=== PATIENT | female | born 1950 | race Caucasian/White ===

== ENCOUNTER 2019-03-02 09:04 | Emergency (ER) | payer MEDICARE ==
[~2019-03-02] VITALS: Ht 167.6 cm; Wt 56.0 kg
--- NOTE | 2019-03-02 09:45 | NUR ---
Pt to 31 from lobby
--- NOTE | 2019-03-02 09:54 | NUR ---
PT TO ED FOR CHRONIC LLQ ABD PAIN SINCE AUGUST. PT STATES SHE WAS CALLED ON SATURDAY AND TOLD THAT SHE NEEDED A BLOOD TRANSFUSION AND TO GO TO THE ED. CONNECTED TO MONITORS. VSS. EDMD TO BEDSIDE FOR ASSESSMENT. AWAITING ORDERS.
[2019-03-02 10:32] LABS: CULTURE INDICATED? NO; MICROSCOPIC NOT IND
[2019-03-02 10:44] LABS: ALANINE AMINOTRANSFERASE 13 U/L (12-78); ALBUMIN 3.4 g/dL (3.4-5.0); ANION GAP 5 mmol/L (5-15); CALCIUM 9.6 mg/dL (8.5-10.1); CHLORIDE 107 mmol/L (98-107); CREATININE 0.91 mg/dL (0.55-1.02)
[2019-03-02 10:46] LABS: ALKALINE PHOSPHATASE 105 U/L (45-117); BILIRUBIN,TOTAL 0.2 mg/dL (0.2-1.0); TOTAL PROTEIN 7.8 g/dL (6.4-8.2)
[2019-03-02 10:47] LABS: MEAN CORPUSCULAR HEMOGLOBIN 21.1 pg (27.0-34.8); MEAN CORPUSCULAR HGB CONC 30.9 g/dL (32.4-35.8); MEAN CORPUSCULAR VOLUME 68.4 fL (80-100); MEAN PLATELET VOLUME 7.8 fL (7.4-10.4); PLATELET COUNT 647 x10^3/uL (130-400); RED BLOOD COUNT 4.21 x10^6/uL (3.82-5.3); RED CELL DISTRIBUTION WIDTH 18.6 % (9.6-15.2)
--- NOTE | 2019-03-02 10:55 | NUR ---
pt to ct at this time.
--- NOTE | 2019-03-02 11:09 | NUR ---
pt back from ct
[2019-03-02 11:15] LABS: BASOPHILS # (AUTO) 0.01 x10^3/uL (0-0.1); BASOPHILS % (AUTO) 0 % (0-1); EOSINOPHILS # (AUTO) 0.16 x10^3/uL (0-0.4); EOSINOPHILS % (AUTO) 2 % (1-7); LYMPHOCYTES # (AUTO) 1.15 x10^3/uL (1-3.4); LYMPHOCYTES % (AUTO) 11 % (22-44); MD MORPH REVIEW ONLY; MONOCYTES # (AUTO) 0.51 x10^3/uL (0.2-0.8); MONOCYTES % (AUTO) 5 % (2-9); NEUTROPHILS # (AUTO) 8.69 x10^3/uL (1.8-6.8); NEUTROPHILS % (AUTO) 83 % (42-75)
[2019-03-02 11:16] LABS: <PLATELET ESTIMATE> INCREASED; <PLT MORPHOLOGY> NORMAL PLT MORPH; ANISOCYTOSIS 1+; MICROCYTOSIS 2+
[2019-03-02 11:17] VITALS: BP 133/79
[2019-03-02 11:18] LABS: HYPOCHROMIA 1+
--- NOTE | 2019-03-02 11:18 | NUR ---
PT RESTING IN ROOM. VSS. NO NEEDS EXPRESSED. AWAITING CT RESUTLS.
[2019-03-02] MEDS ORDERED: OMNIPAQUE 350 MG/ML, 100ML BOTTLE ONE (11:24)
--- NOTE | 2019-03-02 11:28 | NUR ---
all results back at this time. chart up for recheck. lab at bedside to draw retype.
== END 2019-03-02 12:51 | disposition home or self-care (01) ==
LOC: ED 12:30
DX: K52.89 Other specified noninfective gastroenteritis and colitis (principal); D50.9 Iron deficiency anemia, unspecified; K21.9 Gastro-esophageal reflux disease without esophagitis
CPT/HCPCS: 36415; 74177; 80053; 81003; 85025; 86850; 86900; 99284; Q9967

== ENCOUNTER 2019-03-30 10:51 | Emergency (ER) | payer MEDICARE | END 2019-03-30 11:10 | LOC: ED 11:04 | DX: Z53.21 Procedure and treatment not carried out due to patient leaving prior to being seen by health care provider (principal) ==

== ENCOUNTER 2019-03-30 11:20 | Outpatient (CLI) | payer MEDICARE ==
[2019-03-30] MEDS ORDERED: OMNIPAQUE 350 MG/ML, 100ML BOTTLE ONE (13:32)
== END 2019-03-30 23:59 | disposition home or self-care (01) ==
LOC: RAD 11:20
PROVIDERS: ATTEND Internal Medicine Gastroenterology
DX: K63.89 Other specified diseases of intestine (principal); E27.8 Other specified disorders of adrenal gland; R59.0 Localized enlarged lymph nodes; M47.814 Spondylosis without myelopathy or radiculopathy, thoracic region; N83.201 Unspecified ovarian cyst, right side; Z88.5 Allergy status to narcotic agent
CPT/HCPCS: 71260; 74177; Q9967

== ENCOUNTER → 2019-04-17 | Outpatient (CLI) | payer MEDICARE | END | disposition home or self-care (01) | LOC: PETCFH 13:33 | PROVIDERS: ATTEND Internal Medicine | DX: C18.0 Malignant neoplasm of cecum (principal); K11.9 Disease of salivary gland, unspecified | CPT/HCPCS: 78815; A9552 ==

== ENCOUNTER → 2019-05-07 | Outpatient (CLI) | payer MEDICARE ==
[~2019-05-07] MED LIST: FERR-46 PO; NAPR220C2 PO; melatonin PO; ranitidine PO; vitamin c PO
[2019-05-07 11:46] LABS: MEAN CORPUSCULAR VOLUME 70.1 fL (80-100); MEAN PLATELET VOLUME 8.1 fL (7.4-10.4); PLATELET COUNT 568 x10^3/uL (130-400); RED BLOOD COUNT 4.57 x10^6/uL (3.82-5.3); RED CELL DISTRIBUTION WIDTH 24.8 % (9.6-15.2)
[2019-05-07 11:55] LABS: CHLORIDE 108 mmol/L (98-107)
[2019-05-07 12:04] LABS: ALANINE AMINOTRANSFERASE 13 U/L (12-78); ALBUMIN 3.3 g/dL (3.4-5.0); ALKALINE PHOSPHATASE 102 U/L (45-117); ANION GAP 6 mmol/L (5-15); BILIRUBIN,TOTAL 0.2 mg/dL (0.2-1.0); CALCIUM 10.2 mg/dL (8.5-10.1); CREATININE 0.83 mg/dL (0.55-1.02); TOTAL PROTEIN 7.8 g/dL (6.4-8.2)
[2019-05-07 12:12] LABS: MD YES
[2019-05-07 12:13] LABS: ANISOCYTOSIS 1+; HYPOCHROMIA 1+; LYMPH#(MANUAL) 1.76 x10^3/uL (1-3.4); LYMPHS% (MANUAL) 16 % (22-44); MICROCYTOSIS 2+; MONOS#(MANUAL) 0.44 x10^3/uL (0.3-2.7); MONOS% (MANUAL) 4 % (2-9); SEGS% (MANUAL) 80 % (42-75)
[2019-05-07 12:14] LABS: <PLATELET ESTIMATE> INCREASED; <PLT MORPHOLOGY> NORMAL PLT MORPH
== END | disposition home or self-care (01) ==
LOC: STAR 10:40
PROVIDERS: ATTEND Colon & Rectal Surgery
DX: Z01.818 Encounter for other preprocedural examination (principal); C18.0 Malignant neoplasm of cecum
CPT/HCPCS: 36415; 80053; 85025; 93005

== ENCOUNTER 2019-05-14 08:25 | Inpatient (IN) | payer MEDICARE ==
[~2019-05-14] VITALS: Ht 167.6 cm; Wt 53.5 kg
[~2019-05-14 08:25] MED LIST changes: +BUPIVACAINE/EPI 0.5% 1:200K ONE
[2019-05-14] MEDS ORDERED: LACTATED RINGERS 1,000 ML IV SCH ×3 (08:34→14:00)
[2019-05-14 08:50] VITALS: BP 131/83
[2019-05-14] MEDS ORDERED: DIAZEPAM 5 MG TABLET PO ONE (09:00)
[2019-05-14] MEDS ORDERED: GABAPENTIN 300 MG CAPSULE PO ONE (09:00)
[2019-05-14] MEDS ORDERED: ACETAMINOPHEN 500 MG TABLET PO ONE (09:00)
[2019-05-14] MEDS ORDERED: FENTANYL PF 250 MCG/5ML ONE (09:12)
[2019-05-14] MEDS ORDERED: MIDAZOLAM 1 MG/ML, 2ML ONE (09:12)
[2019-05-14] MEDS ORDERED: NEOSTIGMINE 1 MG/ML, 10ML ONE (11:00)
[2019-05-14] MEDS ORDERED: ROCURONIUM 10MG/ML,5ML ONE (11:00)
[2019-05-14] MEDS ORDERED: MIDAZOLAM 1 MG/ML, 2ML IV PRN (11:00)
[2019-05-14] MEDS ORDERED: ALBUTEROL/IPRATROPIUM 2.5MG/0.5MG, 3 ML NPPB PRN (11:00)
[2019-05-14] MEDS ORDERED: hydrALAzine 20 MG/ML, 1ML IV PRN (11:00)
[2019-05-14] MEDS ORDERED: GLYCOPYRROLATE 0.2MG/1ML, 5ML ONE (11:00)
[2019-05-14] MEDS ORDERED: ONDANSETRON 2MG/ML, 2ML IV PRN ×2 (11:00→14:00)
[2019-05-14] MEDS ORDERED: ONDANSETRON 2MG/ML, 2ML ONE (11:00)
[2019-05-14] MEDS ORDERED: DEXAMETHASONE 4 MG/ML, 1ML ONE (11:00)
[2019-05-14] MEDS ORDERED: MEPERIDINE/PF 25MG/0.5ML IVPush PRN (11:00)
[2019-05-14] MEDS ORDERED: PROMETHAZINE 25 MG/ML, 1ML IV PRN (11:00)
[2019-05-14] MEDS ORDERED: OXYcodone 5 MG/5 ML ORAL.SOL UDC PO PRN (11:00)
[2019-05-14] MEDS ORDERED: PROPOFOL 10 MG/ML, 20ML ONE (11:00)
[2019-05-14] MEDS ORDERED: FENTANYL PF 100 MCG/2ML ONE (11:44)
[2019-05-14] MEDS ORDERED: OXYcodone 5 MG/5 ML ORAL.SOL UDC ONE (11:45)
[2019-05-14] MEDS ORDERED: HYDROmorphone 2 MG/ML, 1ML ONE (11:45)
[2019-05-14] MEDS: HYDROmorphone 2 MG/ML, 1ML IVPush PRN ×3 (11:50→12:37)
[2019-05-14] MEDS: FENTANYL PF 100 MCG/2ML IV PRN ×2 (11:50→12:06)
[2019-05-14] MEDS ORDERED: PROMETHAZINE 25 MG/ML, 1ML ONE (12:32)
[2019-05-14] MEDS ORDERED: LORazepam 1MG TABLET PO PRN (14:00)
[2019-05-14] MEDS ORDERED: OXYcodone IR 5MG TABLET PO PRN (14:00)
[2019-05-14] MEDS ORDERED: LORazepam 2 MG/ML, 1ML IVPush PRN (14:00)
[2019-05-14] MEDS ORDERED: HALOPERIDOL 5 MG/ML IVPush PRN (14:00)
[2019-05-14] MEDS ORDERED: MORPHINE SULFATE 4 MG/ML, 1ML IVPush PRN (14:00)
[2019-05-14] MEDS ORDERED: DIPHENHYDRAMINE 25 MG CAPSULE PO PRN (14:00)
[2019-05-14] MEDS ORDERED: DEXAMETHASONE 4 MG/ML, 1ML IVPush PRN (14:00)
[2019-05-14] MEDS ORDERED: TRAZODONE 50MG TABLET PO PRN (14:00)
[2019-05-14] MEDS ORDERED: DIPHENHYDRAMINE 50 MG/ML, 1ML IVPush PRN (14:00)
[2019-05-14] MEDS ORDERED: SCOPOLAMINE PATCH, 1.5MG PATCH.TD72 TD PRN (14:00)
[2019-05-14] MEDS: ACETAMINOPHEN 500 MG TABLET PO SCH ×2 (14:56→20:09)
[2019-05-14] MEDS: KETOROLAC 30 MG/1 ML IVPush SCH ×2 (14:56→20:09)
[2019-05-14] MEDS: CALCIUM CARBONATE 500 MG TAB.CHEW PO PRN ×2 (17:13→21:42)
[2019-05-14 19:48] VITALS: BP 107/66
[2019-05-15 00:26] VITALS: BP 116/68
[2019-05-15] MEDS: KETOROLAC 30 MG/1 ML IVPush SCH ×4 (02:03→20:02)
[2019-05-15] MEDS: ACETAMINOPHEN 500 MG TABLET PO SCH ×4 (02:03→20:02)
[2019-05-15] MEDS: CALCIUM CARBONATE 500 MG TAB.CHEW PO PRN ×4 (02:04→20:02)
[2019-05-15 03:21] LABS: MEAN CORPUSCULAR HEMOGLOBIN 21.8 pg (27.0-34.8); MEAN CORPUSCULAR HGB CONC 30.6 g/dL (32.4-35.8); MEAN CORPUSCULAR VOLUME 71.4 fL (80-100); MEAN PLATELET VOLUME 8.4 fL (7.4-10.4); PLATELET COUNT 522 x10^3/uL (130-400); RED CELL DISTRIBUTION WIDTH 23.5 % (9.6-15.2)
[2019-05-15 03:32] LABS: ANION GAP 4 mmol/L (5-15); CALCIUM 9.6 mg/dL (8.5-10.1); CHLORIDE 106 mmol/L (98-107); CREATININE 0.77 mg/dL (0.55-1.02)
[2019-05-15 04:10] LABS: BASOPHILS # (AUTO) 0.03 x10^3/uL (0-0.1); BASOPHILS % (AUTO) 0 % (0-1); EOSINOPHILS % (AUTO) 0 % (1-7); LYMPHOCYTES # (AUTO) 1.29 x10^3/uL (1-3.4); LYMPHOCYTES % (AUTO) 10 % (22-44); MD MORPH REVIEW ONLY; MONOCYTES # (AUTO) 0.92 x10^3/uL (0.2-0.8); MONOCYTES % (AUTO) 7 % (2-9); NEUTROPHILS % (AUTO) 84 % (42-75)
[2019-05-15 04:11] LABS: ANISOCYTOSIS 1+; MICROCYTOSIS 2+
[2019-05-15 04:12] LABS: <PLATELET ESTIMATE> INCREASED; <PLT MORPHOLOGY> NORMAL PLT MORPH; POLYCHROMASIA 1+
[2019-05-15 04:35] VITALS: BP 117/70
[2019-05-15 06:26] VITALS: BP 130/72
[2019-05-15] MEDS: ENOXAPARIN 40 MG/0.4 ML SQ SCH (12:02)
[2019-05-15 12:50] VITALS: BP 120/65
[2019-05-15 19:10] VITALS: BP 156/72
[2019-05-15] MEDS ORDERED: FAMOTIDINE 20 MG TABLET PO PRN (22:00)
[2019-05-16 00:07] VITALS: BP 147/78
[2019-05-16] MEDS: KETOROLAC 30 MG/1 ML IVPush SCH ×2 (02:30→07:41)
[2019-05-16] MEDS: ACETAMINOPHEN 500 MG TABLET PO SCH ×2 (02:30→07:41)
[2019-05-16 03:20] LABS: MEAN CORPUSCULAR HEMOGLOBIN 22.1 pg (27.0-34.8); MEAN CORPUSCULAR HGB CONC 30.8 g/dL (32.4-35.8); MEAN CORPUSCULAR VOLUME 71.7 fL (80-100); RED BLOOD COUNT 3.93 x10^6/uL (3.82-5.3); RED CELL DISTRIBUTION WIDTH 23.9 % (9.6-15.2)
[2019-05-16 03:29] LABS: ANION GAP 3 mmol/L (5-15); CALCIUM 9.2 mg/dL (8.5-10.1); CHLORIDE 109 mmol/L (98-107); CREATININE 0.79 mg/dL (0.55-1.02)
[2019-05-16 04:09] LABS: MEAN PLATELET VOLUME 8.7 fL (7.4-10.4); PLATELET COUNT 452 x10^3/uL (130-400)
[2019-05-16 04:16] LABS: BASOPHILS # (AUTO) 0.22 x10^3/uL (0-0.1); BASOPHILS % (AUTO) 1 % (0-1); EOSINOPHILS # (AUTO) 0.07 x10^3/uL (0-0.4); EOSINOPHILS % (AUTO) 1 % (1-7); LYMPHOCYTES # (AUTO) 3.02 x10^3/uL (1-3.4); LYMPHOCYTES % (AUTO) 19 % (22-44); MD MORPH REVIEW ONLY; MONOCYTES # (AUTO) 0.92 x10^3/uL (0.2-0.8); MONOCYTES % (AUTO) 6 % (2-9); NEUTROPHILS # (AUTO) 11.99 x10^3/uL (1.8-6.8); NEUTROPHILS % (AUTO) 74 % (42-75)
[2019-05-16 04:18] LABS: ANISOCYTOSIS 1+; MICROCYTOSIS 2+
[2019-05-16 04:19] LABS: <PLATELET ESTIMATE> INCREASED; <PLT MORPHOLOGY> NORMAL PLT MORPH; POLYCHROMASIA 1+
[2019-05-16 07:28] VITALS: BP 123/74
[2019-05-16] MEDS: ENOXAPARIN 40 MG/0.4 ML SQ SCH (11:35)
[2019-05-16] MEDS ORDERED: OXYC-302 PO (11:37)
== END 2019-05-16 12:00 | disposition home or self-care (01) | DRG 329 ==
LOC: ORIP 08:25 → 4NOR 13:05 → DCLOUNGE 05-16 11:44
PROVIDERS: ADMIT Colon & Rectal Surgery; ATTEND Colon & Rectal Surgery
PROC: 0DTF4ZZ Resection of Right Large Intestine, Percutaneous Endoscopic Approach (ICD-10-PCS; principal; 2019-05-14 10:30)
DX: C18.0 Malignant neoplasm of cecum (principal); E43 Unspecified severe protein-calorie malnutrition; F17.210 Nicotine dependence, cigarettes, uncomplicated; E61.1 Iron deficiency; K21.9 Gastro-esophageal reflux disease without esophagitis; Z88.6 Allergy status to analgesic agent; Z90.710 Acquired absence of both cervix and uterus
CPT/HCPCS: 36415; 80048; 83735; 85025; 86850; 86900; 88309; 88341; 88342; 88360; G0378; J1100; J1170; J1650; J1885; J2250; J2405; J2550; J2704; J2710; J3010; J7120